=== PATIENT | female | born 1965 | race Hispanic/Latino ===

== ENCOUNTER 2020-03-17 16:35 | Emergency (ER) | payer OTHER ==
[~2020-03-17] VITALS: Ht 167.6 cm; Wt 70.0 kg
[~2020-03-17 16:35] MED LIST: AUGMENTIN875 MG OR; CLARITIN10 M2 OR; FLEXERIL PO; NAPROSYN500 MG PO; NO MEDICATIONS; ROBITUSSIN AC10 ML OR; TAM75CAP OR
[2020-03-17] MEDS ORDERED: LISINOPRIL10 MG PO (19:27)
[2020-03-17 19:43] LABS: HEMATOCRIT 43.7 % (37.0-47.0); HEMOGLOBIN 14.4 g/dl (12.0-16.0); IMMATURE GRANULOCYTES 0.3 % (0.0-5.0); MEAN CELL VOLUME 96.3 fL CALC (80.0-100.0); MEAN CORPUSCULAR HGB 31.7 pG CALC (26.0-32.0); NEUT# 3.35 thou/uL (2.00-7.15); RED BLOOD COUNT 4.54 mill/uL (4.20-5.60); RED CELL DISTRI WIDTH 12.6 % (11.5-15.5)
[2020-03-17 19:48] LABS: URINE BILIRUBIN - DIPSTICK NEGATIVE (NEGATIVE); URINE BLOOD DIPSTICK TRACE-INTACT (NEGATIVE); URINE COLOR YELLOW; URINE GLUCOSE - DIPSTICK NEGATIVE (NEGATIVE); URINE KETONE NEGATIVE (NEGATIVE); URINE LEUK ESTERASE NEGATIVE (NEGATIVE); URINE NITRITE - DIPSTICK NEGATIVE (Negative); URINE PH 6.5 (4.5-8.0); URINE PROTEIN - DIPSTICK NEGATIVE (NEG-TRACE); URINE SPECIFIC GRAVITY 1.015; URINE UROBILINOGEN - DIPSTICK 0.2 E.U./dL (0.2)
[2020-03-17 19:57] LABS: ALBUMIN 4.6 g/dL (3.2-5.0); ALKALINE PHOSPHATASE 65 u/l (38-126); ANION GAP 10 (6-22 (CALC)); BILIRUBIN, TOTAL 0.3 mg/dL (0.0-1.4); BUN 14 mg/dL (7-17); BUN/CREATININE RATIO 18 (12-20 (CALC)); CHLORIDE 98 mmol/l (95-108); CREATININE 0.8 mg/dL (0.5-1.0); GFR > 60 ML/MIN (>=60 (CALC)); GFR FOR AFR.AMER. > 60 ML/MIN (>=60 (CALC)); LIPASE 186 u/l (23-300); SGOT/AST 23 u/l (14-36); SODIUM 137 mmol/l (137-146); TOTAL PROTEIN 7.3 g/dL (6.3-8.2)
[2020-03-17 19:58] LABS: CARBON DIOXIDE 33 mmol/l (22-30)
[2020-03-17 20:09] VITALS: BP 141/70
[2020-03-17] MEDS ORDERED: ORPHENADRINE100 MG PO (20:19)
[2020-03-17] MEDS ORDERED: IBUPROFEN600 MG PO (20:19)
== END 2020-03-17 20:30 | disposition home or self-care (01) | DRG 392 ==
LOC: ED 16:35
PROVIDERS: Family Medicine
DX: R10.32 Left lower quadrant pain (principal); R10.12 Left upper quadrant pain; R35.0 Frequency of micturition; I10 Essential (primary) hypertension

== ENCOUNTER 2021-10-25 13:24 | Emergency (ER) | payer OTHER ==
[~2021-10-25] VITALS: Ht 167.6 cm; Wt 82.0 kg
[~2021-10-25 13:24] MED LIST changes: +IBUPROFEN600 MG PO; +LISINOPRIL10 MG PO; +ORPHENADRINE100 MG PO
[2021-10-25 13:30] VITALS: BP 173/81
[2021-10-25 14:01] VITALS: BP 149/70
[2021-10-25 14:01] LABS: HEMATOCRIT 42.2 % (37.0-47.0); HEMOGLOBIN 14.3 g/dl (12.0-16.0); IMMATURE GRANULOCYTES 0.1 % (0.0-5.0); MEAN CELL VOLUME 95.7 fL CALC (80.0-100.0); MEAN CORPUSCULAR HGB 32.4 pG CALC (26.0-32.0); MEAN CORPUSCULAR HGB CONC 33.9 g/dL CAL (32.0-36.0); NEUT# 4.88 thou/uL (2.00-7.15); RED BLOOD COUNT 4.41 mill/uL (4.20-5.60); RED CELL DISTRI WIDTH 12.6 % (11.5-15.5)
[2021-10-25 14:14] LABS: ALBUMIN 4.4 g/dL (3.2-5.0); ALKALINE PHOSPHATASE 69 u/l (38-126); ANION GAP 14 (6-22 (CALC)); BILIRUBIN, TOTAL 0.4 mg/dL (0.0-1.4); BUN 7 mg/dL (7-17); BUN/CREATININE RATIO 12 (12-20 (CALC)); C-REACTIVE PROTEIN 0.6 mg/dL (0-0.9); CARBON DIOXIDE 24 mmol/l (22-30); CHLORIDE 108 mmol/l (95-108); CREATININE 0.6 mg/dL (0.5-1.0); GFR > 60 ML/MIN (>=60 (CALC)); GFR FOR AFR.AMER. > 60 ML/MIN (>=60 (CALC)); POTASSIUM 3.9 mmol/l (3.5-5.1); SGOT/AST 33 u/l (14-36); SODIUM 142 mmol/l (137-146); TOTAL PROTEIN 7.6 g/dL (6.3-8.2)
[2021-10-25 14:30] VITALS: BP 135/69
[2021-10-25 14:36] VITALS: BP 135/69
[2021-10-25] MEDS ORDERED: VENTOLIN HFA108 MCG IN (15:06)
[2021-10-25] MEDS ORDERED: ZPAK PO (15:06)
== END 2021-10-25 15:30 | disposition home or self-care (01) | DRG 179 ==
LOC: ED 13:24
PROVIDERS: Nurse Practitioner
DX: U07.1 COVID-19 (principal); R06.02 Shortness of breath; R19.7 Diarrhea, unspecified; R05.9 Cough, unspecified; R68.83 Chills (without fever); I10 Essential (primary) hypertension

== ENCOUNTER 2022-07-14 13:31 | Emergency (ER) | payer OTHER ==
[2022-07-14] VITALS (17 sets, daily range): BP systolic 113–169; BP diastolic 60–100
[~2022-07-14] VITALS: Ht 167.6 cm; Wt 81.6 kg
[~2022-07-14 13:31] MED LIST changes: +VENTOLIN HFA108 MCG IN; +ZPAK PO
[2022-07-14 14:27] LABS: BASO% 0.6 % (0-3); EOS% 2.2 % (0-8); HEMATOCRIT 42.9 % (37.0-47.0); HEMOGLOBIN 14.3 g/dl (12.0-16.0); IMMATURE GRANULOCYTES 0.8 % (0.0-5.0); LYMPH% 33.8 % (15-41); MEAN CELL VOLUME 97.5 fL CALC (80.0-100.0); MEAN CORPUSCULAR HGB 32.5 pG CALC (26.0-32.0); MEAN CORPUSCULAR HGB CONC 33.3 g/dL CAL (32.0-36.0); MONO% 8.1 % (2-13); NEUT# 4.27 thou/uL (2.00-7.15); NEUT% 54.5 % (42-76); RED BLOOD COUNT 4.4 mill/uL (4.20-5.60); RED CELL DISTRI WIDTH 12.8 % (11.5-15.5)
[2022-07-14 14:28] LABS: ALBUMIN 4.8 g/dL (3.2-5.0); ALKALINE PHOSPHATASE 61 u/l (38-126); AMYLASE 74 u/l (30-110); BILIRUBIN, TOTAL 0.4 mg/dL (0.02-1.3); BUN 13 mg/dL (7-17); BUN/CREATININE RATIO 13 (12-20 (CALC)); CHLORIDE 104 mmol/l (95-108); CREATININE 0.9 mg/dL (0.5-1.0); GFR FOR AFR.AMER. > 60 ML/MIN (>=60 (CALC)); GFR OTHER RACES > 60 ML/MIN (>=60 (CALC)); LIPASE 128 u/l (23-300); POTASSIUM 3.7 mmol/l (3.5-5.1); SGOT/AST 35 u/l (14-36); SODIUM 140 mmol/l (137-146); TOTAL PROTEIN 8.2 g/dL (6.3-8.2)
[2022-07-14 14:41] LABS: ANION GAP 11 (6-22 (CALC)); CARBON DIOXIDE 29 mmol/l (22-30)
[2022-07-14] MEDS ORDERED: PROTONIX40 MG PO (17:47)
== END 2022-07-14 18:29 | disposition home or self-care (01) | DRG 392 ==
LOC: ED 13:31
PROVIDERS: Emergency Medicine
DX: K21.9 Gastro-esophageal reflux disease without esophagitis (principal); I10 Essential (primary) hypertension; E78.00 Pure hypercholesterolemia, unspecified

== ENCOUNTER 2022-09-29 11:20 | Emergency (ER) | payer BC ==
[~2022-09-29] VITALS: Ht 167.6 cm; Wt 77.0 kg
[~2022-09-29 11:20] MED LIST changes: +PROTONIX40 MG PO
[2022-09-29] MEDS ORDERED: PAXLOVID PO (13:21)
[2022-09-29 13:23] VITALS: BP 130/71
== END 2022-09-29 13:28 | disposition home or self-care (01) | DRG 179 ==
LOC: ED 11:20
DX: U07.1 COVID-19 (principal); R05.9 Cough, unspecified; I10 Essential (primary) hypertension; E78.00 Pure hypercholesterolemia, unspecified

== ENCOUNTER 2023-06-03 19:32 | Emergency (ER) | payer OTHER, BC ==
[~2023-06-03] VITALS: Ht 167.6 cm; Wt 86.8 kg
[~2023-06-03 19:32] MED LIST changes: +PAXLOVID PO
[2023-06-03] MEDS ORDERED: LOSARTAN POTASS50 MG PO (20:21)
[2023-06-03] MEDS ORDERED: ATORVASTATIN CA10 MG PO (20:21)
[2023-06-03] MEDS ORDERED: MOTRIN800 MG PO (22:04)
[2023-06-03 22:23] VITALS: BP 148/89
== END 2023-06-03 22:23 | disposition home or self-care (01) | DRG 605 ==
LOC: ED 19:32
DX: S50.01XA Contusion of right elbow, initial encounter (principal); M19.021 Primary osteoarthritis, right elbow; I10 Essential (primary) hypertension; E78.5 Hyperlipidemia, unspecified; W22.8XXA Striking against or struck by other objects, initial encounter; Y93.F9 Activity, other caregiving; Y92.89 Other specified places as the place of occurrence of the external cause; Y99.0 Civilian activity done for income or pay; Z88.1 Allergy status to other antibiotic agents; Z96.641 Presence of right artificial hip joint

== ENCOUNTER 2024-01-13 11:03 | Emergency (ER) | payer OTHER ==
[2024-01-13] VITALS (10 sets, daily range): BP systolic 126–150; BP diastolic 64–85
[~2024-01-13] VITALS: Ht 167.6 cm; Wt 77.1 kg
[~2024-01-13 11:03] MED LIST changes: +ATORVASTATIN CA10 MG PO; +LOSARTAN POTASS50 MG PO; +MOTRIN800 MG PO
[2024-01-13] MEDS ORDERED: LIDOcaine HCl 1% (Local Anesth.) 20 ML VIAL STI STA (12:06)
== END 2024-01-13 14:00 | disposition home or self-care (01) | DRG 563 ==
LOC: ED 11:03
PROC: 0RSWXZZ Reposition Right Finger Phalangeal Joint, External Approach (ICD-10-PCS; principal; 2024-01-13)
DX: S63.296A Dislocation of distal interphalangeal joint of right little finger, initial encounter (principal); I10 Essential (primary) hypertension; E78.5 Hyperlipidemia, unspecified; W23.1XXA Caught, crushed, jammed, or pinched between stationary objects, initial encounter; Y92.009 Unspecified place in unspecified non-institutional (private) residence as the place of occurrence of the external cause